=== PATIENT | female | born 1955 | race Caucasian/White ===

== ENCOUNTER 2020-11-13 08:31 | Day surgery (SDC) | payer OTHER ==
[2020-11-08 10:41] LABS: Absolute Lymphocytes (CBC) 2.1 K/uL (0.7-4.9); Basophils % 0.4 % (0-1.3); Hematocrit 41.1 % (36.0-45.0); Lymphocytes % 17.9 % (15.3-44.8); MPV 8.2 fL (7.6-11.3); RBC Red Blood Cell Count 4.92 M/uL (3.86-4.86)
[2020-11-08 10:46] LABS: Protime INR 0.98
--- NOTE | 2020-11-08 12:11 | RAD REPORT ---
EXAM DESCRIPTION: Celestina Patten (2 Views)11/08/2020 10:15 am CLINICAL HISTORY: Preop for genitourinary surgery. Abdominal pain COMPARISON: 2012 FINDINGS: The lungs appear clear of acute infiltrate. The heart is normal size IMPRESSION: No acute abnormalities displayed
--- NOTE | 2020-11-09 07:51 | EKG ---
Test Date: 2020-11-08 Test Time: 09:43:44 Energy Director: MATEUZS MEASUREMENT RESULTS: Intervals: Rate: 47 DC: 140 QRSD: 82 QT: 424 QTc: 375 [place]: P: 204 DC: 140 QRS: 73 T: 23 INTERPRETIVE STATEMENTS: Unusual P axis, possible ectopic atrial bradycardia Abnormal ECG No previous ECG available for comparison Electronically Signed On 11-09-20 07:49:31 INSIGHT LEADER by Wan Jhaveri
--- OUTSIDE RECORDS SUMMARY | 2020-11-13 08:56 | XMS REPORT | Continuity of Care Document ---
:1955 Author Organization [facility] t Address [address] [place] [address] Care Team Providers Name Role Phone Nitish CAMARGO Attending Clinician Lab, Fam Pob I Attending Clinician Unavailable Payers Payer Name Policy Type Policy Number Effective Date Expiration Date S ource Problems This patient has no known problems. Allergies, Adverse Reactions, Alerts Allergy Allergy Status Severity Reaction(s) Onset Inactive Treating Comm ents Source Name Type Date Date Clinician latex DA Active SV [facility] 3- 00:00: [address] TAPE DA Active MO 0 [facility] 3-11 00:00: [address] Medications This patient has no known medications. Procedures This patient has no known procedures. Encounters Start End Encounter Admission Attending Care Care Encounter Source Date/Time Date/Time Type Type Clinicians Facility Department ID 2020-11-02 2020-11-02 Telephone Nitish [facility] [id number] 00:00:00 00:00:00 [employer] [id number] [place] [id number] [place] [phone] nal [address] 2020-09-27 2020-09-27 Telephone Nitish [facility] [id number] 00:00:00 00:00:00 Alvaro [facility] [id number] [place] [id number] [place] [phone] nal 044 [address] 2020-09-24 2020-09-24 Acute Care Nursing Assistant Lab, Adc [facility] [id number] 10:47:34 10:53:36 Visit Lex Cotter I [facility] [id number] [place] [id number] [facility] [id number] nal 0[address] 2020-09-24 2020-09-24 Office Nitish, [facility] [id number] 10:03:27 10:18:27 Visit [facility] [id number] [place] [id number] Professio [id number] nal 044 Office [address] One Results Test Description Test Time Test Comments Results Result Comments Source BASIC METABOLIC PANEL 2018-12-21 08:11:00 Test Item Value Reference Range Interpretation Comme nts SODIUM (test code = NA) 141 MMOL/L 137-145 N POTASSIUM (test code = K) 3.9 MMOL/L 3.5-5.1 N CHLORIDE (test code = CL) 107 MMOL/L 98-107 N CARBON DIOXIDE (test code = CO2) 30 MMOL/L 22-30 N GLUCOSE (test code = GLU) 91 MG/DL 74-106 N BLOOD UREA NITROGEN (test code = 30 MG/DL 7-17 H BUN) GLOMERULAR FILTRATION RATE (test > 60 Reporting units: ml/min/1.73 code = GFR) m2 (Modified M DRD Formula)Referen ce Range: > or = 60 ml/min/1.7 3 m2 CREATININE (test code = CREAT) 0.90 MG/DL 0.52-1.04 N CALCIUM (test code = CA) 9.5 MG/DL 8.4-10.2 N [id number] 08:11:00 Test Item Value Reference Range Interpretation Comments MAGNESIUM (test code = MAG) 2.1 MG/DL 1.6-2.3 N PROTHROMBIN [id number] 07:52:00 Test Item Value Reference Range Interpretation Comments PROTHROMBIN TIME 10.5 SECONDS 9.6-11.6 N PATIENT (test code = PTP) INTERNATIONAL NORMAL 1.0 0.8-1.1 N The INR is to be RATIO (test code = used only for INR) monitoring oral anticoagulantth erap y. INDICATION I NR VALUE ---- ---- ---- -------1. Prophylaxis, de ep venous thrombos is, including hig h risk surgery. 2.0 - 3.0 2. Prophylaxis, de ep venous thrombos is, hip surgery, treatment for d eep venous thrombosis or pulmonary prevention of systemic emboli sm in patients wit h valvular heart disease, atrial fibrillation, tissue heart va lve, or acute myocar dial infarction. 2.0 - 3 .0 3. Mechanical prosthesis hear t valves, recurrent syste apryl embolism. 3.0 - 4.5 Comments to Program Manager Transportation: NURSE TO TAKE TO LBComments to Program Manager Transportation: NURSE TO TAKE TO LABPTT [id number] 07:52:00 Test Item Value Reference Range Interpretation Comments PTT ACTIVATED (test code = APTT) 28.2 SECONDS 22.0-33.0 N Comments to Program Manager Transportation: NURSE TO TAKE TO LBComments to Program Manager Transportation: NURSE TO TAKE TO LABCBC W/AUTO [id number] 07:47:00 Test Item Value Reference Range Interpretation Comments WHITE BLOOD CELL (test code = 12.0 K/MM3 3.8-9.8 H WBC) RED BLOOD CELL (test code = 4.48 M/MM3 3.58-4.97 N RBC) HEMOGLOBIN (test code = HGB) 12.3 G/DL 11.2-14.9 N HEMATOCRIT (test code = HCT) 38.1 % 33.2-43.5 N MEAN CELL VOLUME (test code = 85 fL 80.7-99.1 N MCV) MEAN CELL HGB (test code = MCH) 27.5 pg 27.0-34.1 N MEAN CELL HGB CONCETRATION 32.3 % 32.2-35.7 N (test code = MCHC) RED CELL DISTRIBUTION WIDTH 14.2 % 12.1-15.2 N (test code = RDW) PLATELET COUNT (test code = 297 K/MM3 129-368 N PLT) MEAN PLATELET VOLUME (test code 9.4 fl 7.4-10.4 N = MPV) NEUTROPHIL % (test code = NT%) 59.9 % 43-75 N IMMATURE GRANULOCYTE % (test 0.4 % 0.0-2.0 N code = IG%) LYMPHOCYTE % (test code = LY%) 27.0 % 14-44 N MONOCYTE % (test code = MO%) 7.4 % 4-13 N EOSINOPHIL % (test code = EO%) 4.5 % 0-6 N BASOPHIL % (test code = BA%) 0.8 % 0-2 N NUCLEATED RBC % (test code = 0.0 % 0-1.0 N NRBC%) NEUTROPHIL # (test code = NT#) 7.16 K/mm3 2.0-7.6 N IMMATURE GRANULOCYTE # (test 0.05 x10 3/uL 0-0.03 H code = IG#) LYMPHOCYTE # (test code = LY#) 3.24 K/mm3 1.0-3.8 N MONOCYTE # (test code = MO#) 0.89 K/mm3 0.1-0.8 H EOSINOPHIL # (test code = EO#) 0.54 K/mm3 0.0-0.2 H BASOPHIL # (test code = BA#) 0.10 K/mm3 0.0-0.2 N NUCLEATED RBC # (test code = 0.00 K/mm3 0.0-0.1 N NRBC#)
--- OUTSIDE RECORDS SUMMARY | 2020-11-13 08:56 | XMS REPORT | Summary of Care ---
:[address] [facility] Address [address] [place] [id number] Care Team Providers Name Role Phone MD Nitish Primary Care Provider Reason for Referral (Routine) Status Reason Specialty Diagnoses / Referred By Referred To Procedures Contact Contact Open Location Dermatology Diagnoses Jonathan Steve Procedures CONSULT/REFERRAL DERMATOLOGY MD Alvaro [address] [place] [phone] Reason for Visit Reason Comments Rash bilat. wrists, red, scaly, i tchy LAB WORK thyroid Encounter Details Date Type Department Care Team Description 09/24/2020 Office Visit [facility] Hernan Talbert MD Hypothyroidism, unspecified type (Primar y Dx); Medicine - [address] [phone] Allergies No Known Allergiesdocumented as of this encounter (statuses as of 09/24/2020) Medications Medication Sig Dispensed Refills Start Date End Date Status BUDESONIDE/FORMOTERO Inhale. 0 Active L FUMARATE (SYMBICORT INHALE) budesonide-formotero Inhale 2 10.2 g 0 07/22/2016 Active l (SYMBICORT) Puffs 2 160-4.5 (two) times mcg/actuation daily. inhalerIndications: Cough ferrous sulfate 325 Take 325 mg 0 Active mg (65 mg iron) EC by mouth 2 tablet (two) times daily. valACYclovir 1 gram Take 1 60 tablet 2 09/09/2017 Active tablet tablet by mouth 2 (two) times daily. acyclovir (ZOVIRAX) Apply to 30 g 1 09/09/2017 Active 5 % ointment area(s) 5 (five) times daily. fluticasone 50 Use 2 Sprays 16 g 1 02/10/2018 A ctive mcg/actuation nasal in each sprayIndications: nostril Acute nonseasonal daily. allergic rhinitis due to pollen albuterol 90 Inhale 2 8.5 g 0 11/02/2019 Active mcg/actuation Puffs every inhalerIndications: 6 (six) Cough, Wheezing hours as needed for Wheezing. benzonatate Take 1 30 capsule 0 11/02/2019 Active (TESSALON PERLES) capsule by 100 mg mouth 3 capsuleIndications: (three) Cough, Wheezing times daily. terbinafine HCl 250 Take 1 90 tablet 0 11/28/2019 Active mg tablet by tabletIndications: mouth daily. Dermatophytosis of nail hydrocodone-chlorphe Take 5 mL by 4 oz 0 12/20/2019 Active niramine (TUSSIONEX mouth every PENNKINETIC ER) 10-8 12 (twelve) mg/5 mL hours as suspensionIndication needed for s: Bronchitis Cough. FAMOTIDINE 40 mg TAKE ONE 30 tablet 1 03/16/2020 Ac tive tabletIndications: TABLET BY Reflux esophagitis MOUTH DAILY biotin 10,000 mcg Take by 0 Ac tive TbDL mouth. meloxicam 15 mg Take 1 30 tablet 5 04/19/2020 Act ac tabletIndications: tablet by Arthritis mouth daily. sulfamethoxazole-tri Take 1 20 tablet 0 08/02/2020 Active methoprim (BACTRIM tablet by DS) 800-160 mg per mouth 2 tabletIndications: (two) times Acute cystitis with daily. hematuria SYNTHROID 88 mcg Take 1 90 tablet 1 04/19/2020 09/24/20 Di scontinued tabletIndications: tablet by 20 ( Condition no Hypothyroidism, mouth every lo nger warrants) unspecified type morning. documented as of this encounter (statuses as of 09/24/2020) Active Problems Problem Noted Date Arthritis 09/05/2019 Bariatric surgery status 09/05/2019 Gastroesophageal reflux disease, esophagitis presence not specified 09/09/2017 H/O cold sores 09/09/2017 Obesity 05/16/2016 Hypothyroid 07/20/2015 Essential hypertension 07/20/2015 Reflux esophagitis 07/20/2015 documented as of this encounter (statuses as of 09/24/2020) Immunizations Name Administration Dates Next Due DTAP 10/12/2014 documented as of this encounter Social History Tobacco Use Types Packs/Day Years Used Date Former Smoker Cigarettes 1 Quit: 04/11/20 14 Smokeless Tobacco: Never Used Tobacco Cessation: Counseling Given: No Comments: started at 19 Alcohol Use Drinks/Week oz/Week Comments Not Currently Sex Assigned at Date Recorded Not on file COVID-19 Exposure Response Date Recorded In the last month, have you been in contact with No / Unsure 09/24/2020 10:11 AM DIRECTOR SECURITY RISK MANAGEMENT someone who was confirmed or suspected to have Coronavirus / COVID-19? documented as of this encounter Last Filed Vital Signs Vital Sign Reading Time Taken Comments Blood Pressure 149/69 09/24/2020 10:10 AM DIRECTOR SECURITY RISK MANAGEMENT Pulse 59 09/24/2020 10:10 AM DIRECTOR SECURITY RISK MANAGEMENT Temperature - - Respiratory Rate - - Oxygen Saturation - - Inhaled Oxygen Concentration - - Weight 91.1 kg (200 lb 12.8 oz) 09/24/2020 10:10 AM DIRECTOR SECURITY RISK MANAGEMENT Height 165.1 cm (5' 5") 09/24/2020 10:10 AM DIRECTOR SECURITY RISK MANAGEMENT Body Mass Index 33.41 09/24/2020 10:10 AM DIRECTOR SECURITY RISK MANAGEMENT documented in this encounter Progress Notes Alvaro Talbert MD - 09/24/2020 10:15 AM CST Cc: rash, lab Chief Complaint Patient presents with Rash bilat. wrists, red, scaly, itchy LAB WORK thyroid Marlene Gomez is a 64 year old female. Here with recurring rash, thyroid, f/u Allergies Marlene has No Known Allergies. Medications Outpatient Medications Prior to Visit Medication Sig Dispense Refill sulfamethoxazole-trimethoprim (BACTRIM DS) 800-160 mg per tablet Take 1 tablet by mouth 2 (two) times daily. 20 tablet 0 biotin 10,000 mcg TbDL Take by mouth. meloxicam 15 mg tablet Take 1 tablet by mouth daily. 30 tablet 5 SYNTHROID 88 mcg tablet Take 1 tablet by mouth every morning. 90 tablet 1 FAMOTIDINE 40 mg tablet TAKE ONE TABLET BY MOUTH DAILY 30 tablet 1 hydrocodone-chlorpheniramine (TUSSIONEX PENNKINETIC ER) 10-8 mg/5 mL suspension Take 5 mL by mouth every 12 (twelve) hours as needed for Cough. 4 oz 0 terbinafine HCl 250 mg tablet Take 1 tablet by mouth daily. 90 tablet 0 albuterol 90 mcg/actuation inhaler Inhale 2 Puffs every 6 (six) hours as needed for Wheezing. 8.5 g 0 benzonatate (TESSALON PERLES) 100 mg capsule Take 1 capsule by mouth 3 (three) times daily. 30 capsule 0 fluticasone 50 mcg/actuation nasal spray Use 2 Sprays in each nostril daily. 16 g 1 acyclovir (ZOVIRAX) 5 % ointment Apply to area(s) 5 (five) times daily. 30 g 1 valACYclovir 1 gram tablet Take 1 tablet by mouth 2 (two) times daily. 60 tablet 2 ferrous sulfate 325 mg (65 mg iron) EC tablet Take 325 mg by mouth 2 (two) times daily. budesonide-formoterol (SYMBICORT) 160-4.5 mcg/actuation inhaler Inhale 2 Puffs 2 (two) times daily. 10.2 g 0 BUDESONIDE/FORMOTEROL FUMARATE (SYMBICORT INHALE) Inhale. No facility-administered medications prior to visit. Histories Past Medical History: Diagnosis Date Arthritis Asthma dx 10 years ago. has not had problems since Esophageal reflux Hypertension Thyroid disease Past Surgical History: Procedure Laterality Date ASPIRAT/INJECTION GANGLION CYST(S) COSMETIC SURGERY ENDOSCOPIC CARPAL TUNNEL RELEASE HYSTERECTOMY RADICAL HYSTERECTOMY TUBAL LIGATION Social History Socioeconomic History Marital status: Spouse name: Not on file Number of children: Not on file Years of education: Not on file Highest education level: Not on file Occupational History Not on file Social Needs Financial resource strain: Not on file Food insecurity Worry: Not on file Inability: Not on file Transportation needs Medical: Not on file Non-medical: Not on file Tobacco Use Smoking status: Former Smoker Packs/day: 1.00 Types: Cigarettes Quit date: 04/11/2014 Years since quittin.4 Smokeless tobacco: Never Used Tobacco comment: started at 19 Substance and Sexual Activity Alcohol use: Not Currently Drug use: No Sexual activity: Not on file Lifestyle Physical activity Days per week: Not on file Minutes per session: Not on file Stress: Not on file Relationships Social connections Talks on phone: Not on file Gets together: Not on file Attends christianity service: Not on file Active member of club or organization: Not on file Attends meetings of clubs or organizations: Not on file Relationship status: Not on file Intimate partner violence Fear of current or ex partner: Not on file Emotionally abused: Not on file Physically abused: Not on file Forced sexual activity: Not on file Other Topics Concern Not on file Social History Narrative Not on file Family History Problem Relation Age of Onset Dementia Mother Breast Cancer Sister Review of Systems Vital Signs BP (!) 149/69 (BP Location: Left arm, Patient Position: Sitting, BP CUFF SIZE: Adult Large) | Pulse59 | Ht 5' 5" (1.651 m) | Wt 200 lb 12.8 oz (91.1 kg) | BMI 33.41 kg/m Physical Exam Vitals signs reviewed. Constitutional: Appearance: Normal appearance. HENT: Head: Normocephalic. Nose: Nose normal. Neck: Musculoskeletal: Normal range of motion and neck supple. Cardiovascular: Rate and Rhythm: Normal rate. Pulses: Normal pulses. Heart sounds: Normal heart sounds. Pulmonary: Effort: Pulmonary effort is normal. Breath sounds: Normal breath sounds. Abdominal: General: Abdomen is flat. Musculoskeletal: Normal range of motion. Skin: General: Skin is warm and dry. Findings: Rash (hand arms and face) present. Neurological: General: No focal deficit present. Mental Status: She is alert and oriented to person, place, and time. Assessment/Plan Rash, derm Hypothyroid, lab This visit did not involve counseling and coordination that comprised more than 50% of the visit time. documented in this encounter Plan of Treatment Name Type Priority Associated Diagnoses Order S chedule TSH LAB Routine Hypothyroidism, unspecified Expected: 09/24/2020, type Expires: 2020 THYROXINE, TOTAL LAB Routine Hypothyroidism, unspecif ied Expected: 09/24/2020, type Expires: 2020 Health Maintenance Due Date Last Done Comments HEPATITIS C (HCV) SCREEN 1955 COLON CANCER SCREENING ANNUAL 2006 FIT/FOBT COLON CANCER SCREENING FIT 2006 DNA EVERY 3 YEARS COLON CANCER SCREENING 2006 SIGMOIDOSCOPY EVERY 5 YEARS Zoster Recombinant Vaccine 2006 (SHINGRIX) (1 of 2) LUNG CANCER SCREEN: 2011 Recommended for age 55-80 with 30 + pack year history Breast Cancer Screening 08/24/2020 08/24/2019, (MAMMOGRAM) 08/04/2018 PAP SMEAR 09/23/2020 09/23/2017 COLONOSCOPY 09/25/2020 09/25/2010 Colorectal Cancer Screening 09/25/2020 INFLUENZA VACCINE (#1) 2021 Postponed from 06/12/2020 (Refused) Depression Screening 09/24/2021 09/24/2020 DTaP,Tdap,and Td Vaccines (2 10/12/2024 10/12/2014 - Tdap) PNEUMOCOCCAL 0-64 YEARS Aged Out No longe r eligible based COMBINED SERIES on patient's age to complete this to [facility] documented as of this encounter Results Not on filedocumented in this encounter Visit Diagnoses Diagnosis Hypothyroidism, unspecified type - Prima ry Rash Rash and other nonspecific skin eruption documented in this encounter Additional Health Concerns Infection Onset Date Last Indicated Resolved Time Contact- MRSA 09/08/2019 09/08/2019 documented as of this encounter documented as of this encounter
--- OUTSIDE RECORDS SUMMARY | 2020-11-13 08:57 | XMS REPORT | Summary of Care ---
:1955 Author Organization [facility] - [facility] Address [address] [place] [address] Care Team Providers Name Role Phone MD Nitish Primary Care Provider Reason for Referral (Routine) Status Reason Specialty Diagnoses / Referred By Referred To Procedures Contact Contact Open Location Dermatology Diagnoses Jonathan Steve Procedures CONSULT/REFERRAL DERMATOLOGY MD Alvaro [address] [place] [phone] Reason for Visit Reason Comments Rash bilat. wrists, red, scaly, i tchy LAB WORK thyroid Encounter Details Date Type Department Care Team Description 09/24/2020 Office Visit [facility] Family Hernan Talbert MD Hypothyroidism, unspecified type (Primar y Dx); Medicine - [address] [phone] Allergies No Known Allergiesdocumented as of this [...] with No / Unsure 09/24/2020 10:11 AM ADULT BASIC STUDIES TEACHER someone who was confirmed or suspected to have Coronavirus / COVID-19? documented as of this encounter Last Filed Vital Signs Vital Sign Reading Time Taken Comments Blood Pressure 149/69 09/24/2020 10:10 AM ADULT BASIC STUDIES TEACHER Pulse 59 09/24/2020 10:10 AM ADULT BASIC STUDIES TEACHER Temperature - - Respiratory Rate - - Oxygen Saturation - - Inhaled Oxygen Concentration - - Weight 91.1 kg (200 lb 12.8 oz) 09/24/2020 10:10 AM ADULT BASIC STUDIES TEACHER Height 165.1 cm (5' 5") 09/24/2020 10:10 AM ADULT BASIC STUDIES TEACHER Body Mass Index 33.41 09/24/2020 10:10 AM ADULT BASIC STUDIES TEACHER documented in this encounter Progress Notes Alvaro [...] file Gets together: Not on file Attends voodoo service: Not on file Active member of [...] on patient's age to complete this to [facility] documented as of this encounter [...]
--- OUTSIDE RECORDS SUMMARY | 2020-11-13 08:57 | XMS REPORT | Summary of Care ---
:1955 Author Organization [facility] Address [address] [place] [address] Care Team Providers Name Role Phone MD Nitish Primary Care Provider Reason for Visit Reason Comments Results Encounter Details Date Type Department Care Team Description 09/27/2020 Telephone [facility] Family Medicine Alvaro Aldana MD Results - [address] shen [facility] [place] [address] [place] [address] [phone] Allergies No Known Allergiesdocumented as of this encounter (statuses as of 09/28/2020) Medications Medication Sig Dispensed Refills Start Date End Date Status BUDESONIDE/FORMOTEROL Inhale. 0 Active FUMARATE (SYMBICORT INHALE) budesonide-formoterol Inhale 2 Puffs 10.2 g 0 07/22/2016 Active (SYMBICORT) 160-4.5 2 (two) times mcg/actuation daily. inhalerIndications: Cough ferrous sulfate 325 mg Take 325 mg by 0 Active (65 mg iron) EC tablet mouth 2 (two) times daily. valACYclovir 1 gram Take 1 tablet 60 tablet 2 09/09/2017 Active tablet by mouth 2 (two) times daily. acyclovir (ZOVIRAX) 5 % Apply to 30 g 1 09/09/2017 Active ointment area(s) 5 (five) times daily. fluticasone 50 Use 2 Sprays in 16 g 1 02/10/2018 Active mcg/actuation nasal each nostril sprayIndications: Acute daily. nonseasonal allergic rhinitis due to pollen albuterol 90 Inhale 2 Puffs 8.5 g 0 11/02/2019 A ctive mcg/actuation every 6 (six) inhalerIndications: hours as needed Cough, Wheezing for Wheezing. benzonatate (TESSALON Take 1 capsule 30 capsule 0 11/02/2019 Active PERLES) 100 mg by mouth 3 capsuleIndications: (three) times Cough, Wheezing daily. terbinafine HCl 250 mg Take 1 tablet 90 tablet 0 11/28/2019 Active tabletIndications: by mouth daily. Dermatophytosis of nail hydrocodone-chlorphenira Take 5 mL by 4 oz 0 12/20/2019 Active mine (TUSSIONEX mouth every 12 PENNKINETIC ER) 10-8 (twelve) hours mg/5 mL as needed for suspensionIndications: Cough. Bronchitis FAMOTIDINE 40 mg TAKE ONE TABLET 30 tablet 1 03/16/2020 Active tabletIndications: BY MOUTH DAILY Reflux esophagitis biotin 10,000 mcg TbDL Take by mouth. 0 Active meloxicam 15 mg Take 1 tablet 30 tablet 5 04/19/2020 Active tabletIndications: by mouth daily. Arthritis sulfamethoxazole-trimeth Take 1 tablet 20 tablet 0 08/02/2020 Active oprim (BACTRIM DS) by mouth 2 800-160 mg per (two) times tabletIndications: Acute daily. cystitis with hematuria documented as of this encounter (statuses as of 09/28/2020) Active Problems Problem Noted Date Arthritis 09/05/2019 Bariatric surgery status 09/05/2019 Gastroesophageal reflux disease, esophagitis presence not specified 09/09/2017 H/O cold sores 09/09/2017 Obesity 05/16/2016 Hypothyroid 07/20/2015 Essential hypertension 07/20/2015 Reflux esophagitis 07/20/2015 documented as of this encounter (statuses as of 09/28/2020) Immunizations Name Administration Dates Next Due DTAP 10/12/2014 documented as of this encounter Social History Tobacco Use Types Packs/Day Years Used Date Former Smoker Cigarettes 1 Quit: 04/11/20 14 Smokeless Tobacco: Never Used Comments: started at 19 Alcohol Use Drinks/Week oz/Week Comments Not Currently Sex Assigned at Date Recorded Not on file COVID-19 Exposure Response Date Recorded In the last month, have you been in contact with No / Unsure 09/24/2020 10:11 AM STRAP CUTTING MACHINE OPERATOR someone who was confirmed or suspected to have Coronavirus / COVID-19? documented as of this encounter Last Filed Vital Signs Not on filedocumented in this encounter Miscellaneous Notes Telephone Encounter - Leonie Sarmiento LVN - 09/28/2020 3:22 PM CST Alvaro Talbert MD 09/24/2020 3:42 PM STRAP CUTTING MACHINE OPERATOR Continue off thyroid Patient notified and verbalized understanding. elephone Encounter - Anabella Hagen - 09/27/2020 1:54 PM CSTPt calling for results. documented in this encounter Plan of Treatment Health Maintenance Due Date Last Done Comments [...] on patient's age to complete this to pic documented as of this encounter Results Not on filedocumented in this encounter Additional Health Concerns Infection Onset Date Last Indicated Resolved Time Contact- MRSA 09/08/2019 09/08/2019 documented as of this encounter Insurance Payer Benefit Plan / Group Subscriber ID Effective Dates Phone Address Type AETNA AETNA HMO [id number] 2013-Present HM O documented as of this encounter
--- OUTSIDE RECORDS SUMMARY | 2020-11-13 08:57 | XMS REPORT | Summary of Care ---
:[address] [facility] Address [address] [place] [address] Care Team Providers Name Role Phone MD Nitish Primary Care Provider Reason for Visit Reason Comments Assessment Encounter Details Date Type Department Care Team Description 11/02/2020 Telephone [facility] Family Medicine Alvaro Aldana MD Assessment - [address] [place] [address] [place] [address] [phone] Allergies No Known Allergiesdocumented as of this encounter (statuses as of 11/02/2020) Medications Medication Sig Dispensed Refills Start Date [...] as of this encounter (statuses as of 11/02/2020) Active Problems Problem Noted Date Arthritis 09/05/2019 Bariatric surgery status 09/05/2019 Gastroesophageal reflux disease, esophagitis presence not specified 09/09/2017 H/O cold sores 09/09/2017 Obesity 05/16/2016 Hypothyroid 07/20/2015 Essential hypertension 07/20/2015 Reflux esophagitis 07/20/2015 documented as of this encounter (statuses as of 11/02/2020) Immunizations Name Administration Dates Next Due DTAP 10/12/2014 documented as of this encounter Social History Tobacco Use Types Packs/Day Years Used Date Former Smoker Cigarettes 1 Quit: 04/11/20 14 Smokeless Tobacco: Never Used Comments: started at 19 Alcohol Use Drinks/Week oz/Week Comments Not Currently Sex Assigned at Date Recorded Not on file documented as of this encounter Last Filed Vital Signs Not on filedocumented in this encounter Miscellaneous Notes Telephone Encounter - Leonie Sarmiento LVN - 11/02/2020 1:57 PM CSTCalled patient and advised to make appointment next week with and bring in her monitor with her so it can be checked. Also advised if she has elevated BP and develops severe LARES, CP, numbness to armsand such go to the ER. She verbalized understanding and appointment made for next week. elephone Encounter - Joy Mccormick - 11/02/2020 11:15 AM CSTThe patient states when she gets up and move around she gets dizzy. She states she has taken her blood pressure several times, she has done it about 5 times and she gets a different reading each time. The last few times it was 180/74 and then 152/79. documented in this encounter Plan of Treatment Date Type Specialty Care Team Description 11/06/2020 Office Visit Family Medicine Alvaro Talbert MD [address] [place] [address] [phone] Health Maintenance Due Date Last Done Comments [...] Dates Phone Address Type [employer] AETNA HMO [id number] 2013-Present O documented as of this encounter
--- OUTSIDE RECORDS SUMMARY | 2020-11-13 08:57 | XMS REPORT | Summary of Care ---
:1955 Author Organization [facility] - [facility] Address [address] [place] [address] Care Team Providers Name Role Phone MD Nitish Primary Care Provider Reason for Visit Reason Comments LAB WORK Encounter Details Date Type Department Care Team Description 09/24/2020 Diet Therapist Visit [facility] Family Katrin Talbert MD [address] [place] [id number] Hypothyroidism, Medicine - [facility], Adc Fam Pob I unspecified type [address] [place] [address] Allergies No Known Allergiesdocumented as of this [...] with No / Unsure 09/24/2020 10:11 AM HOME HEALTH CLINICIAN someone who was confirmed or suspected to have Coronavirus / COVID-19? documented as of this encounter Last Filed Vital Signs Not on filedocumented in this encounter Nursing Notes Jennifer Norman - 09/24/2020 10:40 AM CST Venipuncture collection performed by clean technique on the left anticubitus. Total of 1 attempts were made. Slight pressure and a bandage/dressing were applied to the site(s). The patient experienced no complications. The following specimens were processed according to instructions and sent to [facility] laboratories per lab order on TODAY: LT BLUE SST 1 RED LAV PPT DK GREEN (LiHep) DK GREEN (SodH) CASTANEDA DK BLUE (K2) DK BLUE (S) ACD Blood Culture NIPT/NTD documented in this encounter Plan of Treatment [...] encounter Visit Diagnoses Diagnosis Hypothyroidism, unspecified type documented in this encounter Additional Health Concerns Infection Onset Date Last Indicated Resolved Time Contact- MRSA 09/08/2019 09/08/2019 documented as of this encounter documented as of this encounter
[2020-11-13] MEDS ORDERED: AMPICILLIN SODIUM 2 GM in NA CHLORIDE 0.9% 100 ML IVPB ONE (09:00)
[2020-11-13] MEDS ORDERED: Gentamicin Inj 160 MG in NA CHLORIDE 0.9% 100 ML IV ONE (09:00)
[2020-11-13] MEDS ORDERED: Ringers Lactate 1,000 ML IV ONE (09:01)
[2020-11-13] MEDS ORDERED: propofoL 200 MG/20 ML VIAL IV ONE (09:38)
[2020-11-13] MEDS ORDERED: FENTANYL CITR 100 MCG/2 ML ONE ×2 (09:38→10:59)
[2020-11-13] MEDS ORDERED: dexAMETHasone 10 MG/ML VIAL ONE (09:39)
[2020-11-13] MEDS ORDERED: MIDAZOLAM HCL 2 MG/2 ML INJ ONE (09:39)
[2020-11-13] MEDS ORDERED: LIDOCAINE 1% MPF 5 ML VIAL ONE (09:39)
[2020-11-13] MEDS ORDERED: ONDANSETRON 4 MG/2 ML VIAL ONE (09:41)
[2020-11-13] MEDS ORDERED: GLYCOPYRROLATE 0.2 MG/ML SYR ONE ×2 (10:14→10:31)
[2020-11-13] MEDS ORDERED: Mastisol Adhesive Liq ONE (11:00)
--- NOTE | 2020-11-13 11:15 | RAD REPORT ---
EXAM DESCRIPTION: RAD - Urethrocystogrphy Retrograde - 11/13/2020 11:08 am CLINICAL HISTORY: STENT COMPARISON: No comparisons FINDINGS: Total fluoro time: 0.53 minutes
[2020-11-13 11:31] VITALS: O2SAT 97
[2020-11-13] MEDS ORDERED: PHENAZOPYRIDINE 100MG TAB PO ONE (11:39)
[2020-11-13] MEDS ORDERED: HYDROCODONE/APAP 5/325 MG TAB PO PRN (11:39)
--- NOTE | 2020-11-13 12:36 | OP ---
Surgeon: MARY ALICE HERNÁNDEZ Preoperative Diagnoses: 1.Gross hematuria. 2.Right 7 mm nephrolithiasis. Postoperative Diagnoses: 1.Gross hematuria. 2.Right 7 mm nephrolithiasis. Principle Procedure: 1.Cystoscopy, bilateral retrograde pyelography. 2.Right ureteroscopy, laser lithotripsy, and stent placement. Indication For Procedure: Ms. Gomez presented to the [facility]rology [facility] with recurrent gross hematuria. She had been evaluated with a CT urogram as well as a cystoscopy as an outpatient and no abnormaliti es were noted within the bladder. Only a 7 mm calculus was noted within the extrarenal pelvis of the right kidney. As a result, since the stone was not visible and amenable to as wall, with persistent and recurrent gross hematuria, she required definitive ureteroscopic management of the stone. As a result, she presents today for depend definitive evaluation of her gross hematuria and to manage the stone as possible. Procedure In Detail: The patient was consented in the preoperative holding area before being transfe rred to operative suite where general anesthesia was induced. She was given ampicillin and gentamici n IV, antimicrobial prophylaxis and pneumo boots were provided for DVT prophylaxis. She was placed i n the lithotomy position, padded and secured to the table appropriately. The case was begun, after h er genitalia was prepped and draped in standard fashion using Hibiclens. Using a 22-Czech rigid cys toscope, the urethra was traversed and the bladder entered. The bladder was surveyed in its entirety , and no mucosal lesions, foreign bodies or stones were noted throughout. The ureteral orifices were orthotopic in location and the left ureteral orifice was cannulated first. Left retrograde pyelography: Using a 70:30 mixture of Omnipaque and saline, contrast was injected vi a the 5-Czech ureteral access catheter, instilled into the distal ureteral orifice and did propagate up the distal into the mid and proximal ureter before filling a nondilated left renal pelvis with no blunting of the calyces and no evidence of filling defect. There was also no evidence of uretero ne phrosis. As a result, I turned my attention to the right ureteral orifice, which was again cannulate d using the tip of a 5-Czech ureteral access catheter. Right retrograde pyelography: Using that same 70:30 mixture of Omnipaque and saline, contrast was ag ain injected into the distal ureter and did propagate up a nondilated ureter before entering a collec ting system where there was the evident pelviectasis/extrarenal pelvis seen on CT scan. There was no significant blunting of the calyces, and there was no visible calculus or filling defect. I then pa ssed a Sensor wire into the upper pole of the kidney as observed fluoroscopically. I then tried to e mploy a dual-lumen catheter, but was unable to successfully dilate the ureteral orifice significantly . As a result, I then passed a edPULSEson guidewire into the upper pole of the kidney alongside the ind welling safety wire and I passed a ureteral access sheath into the distal ureter with some difficulty navigating it beyond about 1 cm into the orifice. I was then able to navigate over the guidewire vi a the access sheath, a flexible ureteroscope into the mid distal ureter and then navigated into the p roximal ureter and into the renal pelvis with ease. Upon entry into the renal pelvis, there was some cloudiness of the urine and some evident hematuria. I aspirated the renal pelvis of the cloudy flui d and visualized the presence of the calcification, which seemed to be attached to the wall of the re nal pelvis in that location. As a result, I then employed a 275 nm laser fiber at a power setting of 0.8 joules and 8 hertz to fragment the stone. I then increased the frequency to 15 hertz to dust th e stone fragments into a size less than about a half a mm in diameter. Once this was done, I then patiño rveyed the calyces that were visible, given the limitations of the ureteral access sheath, which coul d not be propagated beyond the ureteral orifice significantly and the limitation associated with the length of the ureteroscope in terms of completeness of access. However, no additional concerning muc osal lesions were obvious or apparent. Thus for lying on the CT urogram that was previously performe d and did not identify any mucosal lesions, I retracted the ureteroscope into the proximal ureter and surveyed down into the mid and distal ureter before removing the ureteroscope. I then backloaded a cystoscope over the indwelling safety wire and placed a 6-Czech x 26 cm double-J right ureteral sten t with a coil observed fluoroscopically within the renal pelvis and 1 cystoscopically within the blad belia. I then decompressed her bladder of fluid and urine, and the patient was taken out of the lithot deana position. She was then awakened from general anesthesia, transferred to a stretcher, and then tr ansferred to the recovery room in good condition. Complications: None. Discharge Disposition: She will be discharged with a prescription for Augmentin 875 mg tablets x7 da ys, taken twice a day. She will also be given [place] for pain management. She should follow up in [facility] in approximately 2 weeks for cystoscopy and ureteral stent extraction. She should s train her urine thereafter for any of the stone dust and bring that with her for analysis should she pass any. Subsequent followup will be determined based on any recurrent gross hematuria or if this o r if she is a recurrent stone former requiring metabolic profile assessment. MANASA/NAZL Voice ID: [id number] Report ID: [id number]
[2020-11-13 13:34] VITALS: BP 106/79; TEMP 97.5
== END 2020-11-13 12:40 | disposition home or self-care (01) ==
LOC: PRE 08:31 → OR 12:40
PROVIDERS: ATTEND Urology
PROC: 0T768DZ Dilation of Right Ureter with Intraluminal Device, Via Natural or Artificial Opening Endoscopic (ICD-10-PCS; 2020-11-13)
PROC: 0TC08ZZ Extirpation of Matter from Right Kidney, Via Natural or Artificial Opening Endoscopic (ICD-10-PCS; 2020-11-13)
PROC: 0TF68ZZ Fragmentation in Right Ureter, Via Natural or Artificial Opening Endoscopic (ICD-10-PCS; principal; 2020-11-13 10:15)
DX: N20.0 Calculus of kidney (principal); R31.0 Gross hematuria; Z20.822 Contact with and (suspected) exposure to COVID-19
CPT/HCPCS: 93005; 87088; 87070; 85025; 87086; 80048; 36415; 85610; 71046; 74450; 51610; 52356; 52005; U0002; J2704; J1580; J2250; J3010 ×2; J1100; J7120; J2405; J0290